=== PATIENT | male | born 1955 | race Caucasian/White ===

== ENCOUNTER → 2016-08-15 | Outpatient (CLI) | payer MEDICARE, BC ==
[~2016-08-15] MED LIST: ASPI-482 PO; CLON1TAB3 PO; CYCL10TA2 PO; FENT1PAT91 TP; GABA800T2 PO; IOHEXOL 300 MG/ML 50 ML VIAL. IT ONE; LIDOCAINE 1% Multi-Dose 20 ML VIAL. ID ONE; METO100T2 PO; OXYC-250 PO; SERT100T8 PO; SIMV40TA3 PO; TRAZ50TA15 PO
--- NOTE | 2016-08-15 12:29 | KCIC ---
PROCEDURE Fluoroscopic guided lumbar puncture for cervical and lumbar myelography; cervical and lumbar spine CT myelogram; lumbar spine, five views. HISTORY Lower back pain and left lower extremity radiculopathy. Neck pain and left upper extremity numbness. TECHNIQUE Standing frontal, lateral, flexion and extension and coned sacral views of the lumbar spine are obtained. Subsequently, risks of the lumbar puncture and myelogram procedure were discussed with the patient and written and verbal consent was obtained. A time-out was performed. Fluoroscopic imaging of the lumbar spine was performed and a site overlying L2-L3 was selected for needle entry. The skin overlying this region was sterilely prepped, draped and infiltrated with 1 percent lidocaine. A 25 gauge needle was advanced into the thecal sac and appropriate needle tip positioning was confirmed with spontaneous yield of CSF within the needle hub. 10 cc Omnipaque 300 intrathecal contrast was injected into the thecal sac. The needle was removed and a sterile bandage was placed at the needle entry site. Prone, lateral neutral and flexion and extension fluoroscopic images of the lumbar spine were obtained. The contrast column was then advanced to the cervical levels and prone, bilateral oblique and lateral fluoroscopic images of the cervical spine are obtained. A total of 7 fluoroscopic images were obtained for a total fluoroscopy time of 1 minutes 11 seconds. The patient transferred to the CT suite for the post injection CT portion of the exam. The patient tolerated the procedure without difficulty and was discharged in stable condition. One or more of the following individualized dose reduction techniques were utilized for this examination: 1. Automated exposure control; 2. Adjustment of the mA and/or kV according to patient size; 3. Use of iterative reconstruction technique. COMPARISON MRIs performed at an outside facility on 11/08/2015 and 08/28/2014. FINDINGS Lumbar spine: Standing frontal, lateral, flexion and extension and coned sacral views of the lumbar spine are obtained. The images demonstrate instrumented posterior spinal fusion at L2-L3 and L4-L5. The instrumentation consists of paired transpedicular screws bridge by vertical rods and interbody devices at the fused levels. There is no evidence of instrumentation loosening or fracture. There is levoscoliosis centered at L1. There is mild hyperlordosis. There is minimal retrolisthesis of T12 on L1 and L1 on L2. There is endplate remodeling at all levels. There is facet arthropathy predominately at L3-L4. There is no clear movement at the fused levels between flexion extension. The lumbar CT myelogram portion of the exam demonstrates instrumented posterior spinal fusion and interbody fusion at L2-L3 and L4-L5. There is no evidence of instrumentation or loosening. There is hyperlordosis. There is minimal retrolisthesis of T12 on L1 and L1 on L2. There is a minimal superior endplate depression at L2. There is levoscoliosis centered at L1. There is degenerative endplate remodeling osteophytosis and Schmorl's node formation along the right aspect of L1-L2. This corresponds with the level of scoliotic concavity. There is no abdominal aortic aneurysm measuring 3.0 cm, partially included on the field of view. There is aorto bi-iliac atherosclerosis. The conus terminates at L1. At T12-L1, there is right lateral predominant endplate remodeling. There is slight retrolisthesis. There is mild right foraminal stenosis. At L1-L2, there is a right foraminal to lateral disc protrusion and endplate osteophytosis. There is mild right facet arthropathy. There is mild to moderate right foraminal stenosis with abutment of the exiting right L1 nerve root. At L2-L3, there is instrumented fusion. There is laminectomy decompression. There is no stenosis. At L3-L4, there is a minimal disc bulge. There is moderate facet arthropathy. There is mild bilateral foraminal stenosis with abutment of the exiting L3 nerve roots. At L4-L5, there is instrumented fusion. There is laminectomy decompression. There is no stenosis. At L5-S1, there is mild left greater than right facet arthropathy. There is no stenosis. Cervical spine: There is instrumented anterior spinal fusion and interbody fusion at C4 through C6. There is bony bridging at the fused levels. There is no evidence of instrumentation loosening or fracture. There is no significant listhesis. There is degenerative endplate remodeling with disc space narrowing predominately at C6-C7. There is flattening of the ventral aspect of the spinal cord at this level, described in detail below. No suspicious osseous lesion is seen. There are few small endplate Schmorl's nodes. The skullbase and posterior fossa are unremarkable. At C2-C3, there is left posterior lateral predominant endplate remodeling. There is no stenosis. At C3-C4, there is right posterior lateral predominant endplate remodeling. There is mild right and moderate to severe left facet arthropathy. There is mild left foraminal stenosis. There is a tiny focus of hyperdense contrast within the right neural foramen, likely of no clinical significance. At C4-C5, there is instrumented fusion. There is mild bilateral facet arthropathy. There is no stenosis. At C5-C6, there is instrumented fusion. There is mild bilateral facet arthropathy. There is no stenosis. At C6-C7, there is a disc bulge and endplate remodeling. There is right greater than left uncovertebral arthropathy. There is moderate right and mild left foraminal stenosis. There is prominent dorsal epidural fat at this level. There is slight deformation of the ventral aspect of the spinal cord without significant central canal stenosis. IMPRESSION LUMBAR SPINE: 1. Instrumented posterior spinal fusion and interbody fusion at L2-L3 and L4-L5. There is no evidence of instrumentation loosening or fracture. 2. Lumbar levoscoliosis centered at L1. There is associated degenerative endplate remodeling with disc space narrowing, osteophytosis and Schmorl's node formation along the right aspect of L1-L2. This results in mild to moderate right foraminal stenosis with abutment of the exiting right L1 nerve root. 3. Moderate facet arthropathy superimposed on a minimal disc bulge at L3-L4, resulting in mild bilateral foraminal stenosis. 4. No clear movement at the fused lumbar levels between flexion and extension. 5. Abdominal aortic aneurysm measuring 3.0 cm. CERVICAL SPINE: 1. Instrumented anterior spinal fusion and interbody fusion at C4 through C6. There is no evidence of instrumentation loosening or fracture. 2. C6-C7: Disc bulge with endplate remodeling and uncovertebral arthropathy, resulting in moderate right and mild left foraminal stenosis and slight flattening of the ventral aspect of the spinal cord without significant central canal stenosis. 3. C3-C4: Endplate remodeling with mild right and moderate to severe left foraminal stenosis, resulting mild left foraminal stenosis. Electronically signed by: Arianna Juan (Aug 15, 2016 12:27:52)
== END | disposition home or self-care (01) ==
LOC: KCIC 09:48
PROVIDERS: ATTEND Neurological Surgery
DX: M48.02 Spinal stenosis, cervical region (principal); I71.4 Abdominal aortic aneurysm, without rupture
CPT/HCPCS: 72110; 72126; 72132; 72270; Q9967